=== PATIENT | male | born 1990 | race Caucasian/White ===

== ENCOUNTER 2018-04-05 04:49 | Emergency (ER) | payer BC ==
[2018-04-05 05:14] VITALS: O2SAT 98
[2018-04-05] MEDS ORDERED: Aluminum Hydroxide/Magnesium Hydroxide Susp (30 mL) PO STA (06:11)
--- NOTE | 2018-04-05 06:20 | C.PDOC ---
History Of Present Illness 27 year old male c/o epigastric abdominal pain after drinking coffee last night at 23:00. Patient reports he has history of gastritis vs small ulcer. Patient reports his pain has subsided initially was 8/10 currently a 4/10. Patient denies fever chills, nausea, vomit, diarrhea, dysuria, hematuria, rash. Time Seen by Provider: 04/05/18 05:44 Chief Complaint (Nursing): Abdominal Pain History Per: Patient History/Exam Limitations: no limitations Onset/Duration Of Symptoms: Hrs (23:00) Current Symptoms Are (Timing): Still Present Context: Food Pain Scale Rating Of: 4 Location Of Pain/Discomfort: Epigastric Quality Of Discomfort: "Pain" Associated Symptoms: denies: Nausea, Vomiting, Diarrhea, Urinary Symptoms Exacerbating Factors: Food Recent travel outside of the [place]: No Additional History Per: Patient Past Medical History Reviewed: Historical Data, Nursing Documentation, Vital Signs Vital Signs: Last Vital Signs Temp 99.1 F 04/05/18 05:04 Pulse 73 04/05/18 05:04 Resp 14 04/05/18 05:04 BP 130/76 04/05/18 05:04 Pulse Ox 98 04/05/18 05:04 - Medical History PMH: Gastritis Surgical History: No Surg Hx Family History: States: Unknown Family Hx - Social History Hx Alcohol Use: Yes Hx Substance Use: No - Immunization History Hx Tetanus Toxoid Vaccination: No Hx Influenza Vaccination: No Hx Pneumococcal Vaccination: No Review Of Systems Constitutional: Negative for: Fever, Chills Cardiovascular: Negative for: Chest Pain, Palpitations Respiratory: Negative for: Shortness of Breath Gastrointestinal: Positive for: Abdominal Pain. Negative for: Nausea, Vomiting, Diarrhea Genitourinary: Negative for: Dysuria, Hematuria Musculoskeletal: Negative for: Back Pain Neurological: Negative for: Weakness, Numbness Physical Exam - Physical Exam Appears: Non-toxic, No Acute Distress Skin: Normal Color, Warm, Dry Head: Atraumatic, Normacephalic Eye(s): bilateral: Normal Inspection Oral Mucosa: Moist Neck: Normal ROM, Supple Chest: Symmetrical Cardiovascular: Rhythm Regular Respiratory: Normal Breath Sounds, No Rales, No Rhonchi, No Wheezing Gastrointestinal/Abdominal: Soft, No Tenderness, No Guarding, No Rebound Back: No CVA Tenderness Extremity: Normal ROM, No Tenderness, No Swelling Neurological/Psych: Oriented x3, Normal Speech, Normal Cognition Gait: Steady ED Course And Treatment O2 Sat by Pulse Oximetry: 98 (On RA) Pulse Ox Interpretation: Normal Progress Note: Plan: - Maalox 30 ml PO. - Pepcid 20 mg PO. Patient reports his pain is much improved now, requesting pain medication before being discharged. Patient was advised to follow up with PMD for further evaluation. Disposition - Disposition Referrals: [facility] at [facility] [Outside] Disposition Time: 06:49 Condition: STABLE Additional Instructions: Continue antacids Avoid caffeine, dairy, greasy , spicy foods Return to ER if worse Prescriptions: Ranitidine HCl [Zantac] 300 mg PO DAILY #15 tablet Instructions: Gastritis (DC) Forms: [facility] ([place]) - Clinical Impression Clinical Impression: Gastritis - PA / CAP SEWER / Resident Statement MD/DO has reviewed & agrees with the documentation as recorded. - Scribe Statement The provider has reviewed the documentation as recorded by the Scribe Rafael Santizo All medical record entries made by the Scribe were at my direction and personally dictated by me. I have reviewed the chart and agree that the record accurately reflects my personal performance of the history, physical exam, medical decision making, and the department course for this patient. I have also personally directed, reviewed, and agree with the discharge instructions and disposition.
[2018-04-05] MEDS ORDERED: Aluminum Hydroxide/Magnesium Hydroxide Susp (30 mL) ONE (06:23)
[2018-04-05 07:13] VITALS: BP 130/72; PULSE 77; RESP 16; TEMP 97.9
== END 2018-04-05 07:13 | disposition home or self-care (01) ==
LOC: C.ER 04:49
DX: K29.70 Gastritis, unspecified, without bleeding (principal)